=== PATIENT | female | born 2000 | race Two or more races ===

== ENCOUNTER 2023-07-18 15:13 | Emergency (ER) | payer OTHER ==
[~2023-07-18] VITALS: Ht 157.5 cm; Wt 93.9 kg
[2023-07-18 15:54] VITALS: BP 131/79; PULSE 108; RESP 20; TEMP 98.8; O2SAT 98
[2023-07-18] MEDS ORDERED: IBUP-1456 PO (16:44)
[2023-07-18] MEDS ORDERED: ACETAMINOPHEN 500 MG TAB PO ONE (16:45)
== END 2023-07-18 17:27 | disposition home or self-care (01) ==
LOC: ER 15:13
DX: S01.01XA Laceration without foreign body of scalp, initial encounter (principal); S06.899A Other specified intracranial injury with loss of consciousness of unspecified duration, initial encounter; W18.09XA Striking against other object with subsequent fall, initial encounter; Y93.89 Activity, other specified; Y92.89 Other specified places as the place of occurrence of the external cause; Y99.8 Other external cause status
CPT/HCPCS: 12002; 70450